=== PATIENT | male | born 1980 | race African-American/Black ===

== ENCOUNTER 2020-04-03 15:23 | Emergency (ER) | payer OTHER ==
[~2020-04-03] VITALS: Ht 172.7 cm; Wt 88.9 kg
[2020-04-03] MEDS ORDERED: diphenhydrAMINE HCL 50 MG/ML VIAL IM ONE (15:30)
[2020-04-03] MEDS ORDERED: HALOPERIDOL LACTATE INJ 5 MG/ML VIAL IM ONE (15:30)
[2020-04-03] MEDS ORDERED: LORAZEPAM INJ 2 MG/ML VIAL IVP ONE (15:30)
--- NOTE | 2020-04-03 15:40 | NUR ---
BIBRA60 FROM STREETS ACTING BIZZARE AND ONLY WEARING UNDERWEAR BG 94 PATIENT RELATIONS LIAISON. [employer] AT BEDSIDE. WILL PLACE PATIENT ON A 5150 HOLD. NEEDS ATTENDED.
[2020-04-03 15:54] LABS: BASOPHILS # (AUTO) 0.1 /CMM (0.0-0.2); BASOPHILS % (AUTO) 0.9 % (0.0-2.0); HEMATOCRIT 40 % (39-51); HEMOGLOBIN 13.1 g/dL (13.5-17.5); LYMPHOCYTES # (AUTO) 2.1 /CMM (0.8-4.8); LYMPHOCYTES % (AUTO) 32.6 % (20.0-44.0); MEAN CORPUSCULAR HGB CONC 33 g/dl (31.0-36.0); MEAN CORPUSCULAR VOLUME 89 fL (80-96); MONOCYTES # (AUTO) 0.7 /CMM (0.1-1.30); MONOCYTES % (AUTO) 10.6 % (2.0-12.0); NEUTROPHILS # (AUTO) 3.5 /CMM (1.8-8.9); NEUTROPHILS % (AUTO) 54.9 % (43.0-81.0); PLATELET COUNT (AUTO) 229 /CMM (150-450); RED BLOOD CELL COUNT(AUTO) 4.52 MIL/uL (4.5-6.0); WHITE BLOOD COUNT (AUTO) 6.4 K/uL (4.3-11.0)
[2020-04-03] MEDS ORDERED: diphenhydrAMINE HCL 50 MG/ML VIAL ONE (15:57)
[2020-04-03] MEDS ORDERED: HALOPERIDOL LACTATE INJ 5 MG/ML VIAL ONE (15:57)
[2020-04-03] MEDS ORDERED: LORAZEPAM INJ 2 MG/ML VIAL ONE (15:57)
--- NOTE | 2020-04-03 16:00 | NUR ---
5150 HOLD PLACED IN THE CHART.
[2020-04-03 16:02] LABS: CALCIUM, SERUM 9.2 mg/dL (8.5-10.1); CREATININE 0.7 mg/dL (0.6-1.3); POTASSIUM 3.1 mmol/L (3.5-5.1)
[2020-04-03 16:08] LABS: ALBUMIN 3.6 g/dL (3.4-5.0); BILIRUBIN,DIRECT 0.2 mg/dL (0.0-0.2); BILIRUBIN,TOTAL 0.7 mg/dL (0.2-1.0); TOTAL PROTEIN, SERUM 7.9 g/dL (6.4-8.2)
[2020-04-03 16:09] LABS: SALICYLATE 0.5 mg/dL (2.8-20.0)
--- NOTE | 2020-04-03 16:44 | NUR ---
STRAIGHT CATHETER DONE VIA STERILE TECHNIQUE.
[2020-04-03 16:49] LABS: APPEARANCE,URINE Clear (CLEAR); BILIRUBIN,URINE Negative (NEGATIVE); BLOOD, URINE Moderate Ery/uL (NEGATIVE); COLOR,URINE Yellow (YELLOW); KETONES,URINE Negative (NEGATIVE); LEUKOCYTE ESTERASE ,URINE Negative (NEGATIVE); NITRITE, URINE Negative (NEGATIVE); PH,URINE 5.5 (5.0-8.0); PROTEIN,URINE Negative (NEGATIVE); UGLUCOSE Negative (NEGATIVE); UROBILINOGEN,URINE 0.2 EU/dL (0.2)
[2020-04-03 17:01] LABS: BACTERIA,URINE Few /HPF (None Seen); SQUAMOUS EPITHELIAL CELL,UR Few /HPF (None Seen); WBC,URINE 0-2 /HPF (0-3)
--- NOTE | 2020-04-03 17:14 | NUR ---
patient placed on o2 at 2lpm via nc for comfort.
--- NOTE | 2020-04-03 17:39 | NUR ---
Patient asleep, but easily arousable. No distress noted.
--- NOTE | 2020-04-03 19:17 | NUR ---
ENDORSED TO GO[facility] BARRIOS FOR JOCELYN.
--- NOTE | 2020-04-03 19:52 | NUR ---
Patient is resting comfortably in bed with eyes closed. Easily aroused. VSS. Sitter at bedside.
--- NOTE | 2020-04-03 21:16 | NUR ---
Patient is resting comfortably in bed with eyes closed. Easily aroused. VSS.
--- NOTE | 2020-04-03 23:46 | NUR ---
RESTING COMFORTABLY. VSS.
--- NOTE | 2020-04-04 01:30 | NUR ---
Patient discharged to home in stable condition. Written and verbal after care instructions given. Patient verbalizes understanding of instruction. PT Cleared by crisis team.
[2020-04-04 03:13] VITALS: BP 127/72
== END 2020-04-04 03:14 | disposition home or self-care (01) ==
LOC: ER 15:31
DX: F15.121 Other stimulant abuse with intoxication delirium (principal); I10 Essential (primary) hypertension; J45.909 Unspecified asthma, uncomplicated
CPT/HCPCS: 36415; 80048; 80076; 80305; 80307; 80329; 81001; 85025; 96372 ×2; 99285; G0480; J1200; J1630; J2060; 81000-TC

== ENCOUNTER 2020-04-05 08:27 | Emergency (ER) | payer OTHER ==
[~2020-04-05] VITALS: Ht 172.7 cm; Wt 88.9 kg
[2020-04-05 08:52] LABS: HEMOGLOBIN 14.2 g/dL (13.5-17.5)
[2020-04-05 08:55] LABS: HEMATOCRIT 43 % (39-51); LYMPHOCYTES # (AUTO) 1.5 /CMM (0.8-4.8); MEAN CORPUSCULAR HGB CONC 33 g/dl (31.0-36.0); MONOCYTES # (AUTO) 0.6 /CMM (0.1-1.30); NEUTROPHILS # (AUTO) 2.7 /CMM (1.8-8.9); WHITE BLOOD COUNT (AUTO) 4.9 K/uL (4.3-11.0)
[2020-04-05 08:58] LABS: CALCIUM, SERUM 8.7 mg/dL (8.5-10.1); CREATININE 0.9 mg/dL (0.6-1.3); POTASSIUM 3.2 mmol/L (3.5-5.1)
[2020-04-05 09:03] LABS: ALBUMIN 3.5 g/dL (3.4-5.0); BASOPHILS % (AUTO) 0.7 % (0.0-2.0); BILIRUBIN,DIRECT 0.1 mg/dL (0.0-0.2); BILIRUBIN,TOTAL 0.4 mg/dL (0.2-1.0); EOSINOPHILS % (AUTO) 1.2 % (0.0-6.0); LYMPHOCYTES % (AUTO) 31.5 % (20.0-44.0); MEAN CORPUSCULAR VOLUME 88 fL (80-96); MONOCYTES % (AUTO) 12.3 % (2.0-12.0); NEUTROPHILS % (AUTO) 54.3 % (43.0-81.0); PLATELET COUNT (AUTO) 240 /CMM (150-450)
[2020-04-05 09:04] LABS: SALICYLATE 1.2 mg/dL (2.8-20.0)
--- NOTE | 2020-04-05 09:22 | NUR ---
Patient awake alert noted able to make his needs known patient able to ambulated to bathroom urine obtained and send to lab ,patient would like to be call " Charissa" patient no agitation no hallucination @ this time will continue to monitor
[2020-04-05 09:26] LABS: APPEARANCE,URINE Clear (CLEAR); BILIRUBIN,URINE Negative (NEGATIVE); BLOOD, URINE Trace-intact Ery/uL (NEGATIVE); COLOR,URINE Yellow (YELLOW); KETONES,URINE Negative (NEGATIVE); LEUKOCYTE ESTERASE ,URINE Negative (NEGATIVE); NITRITE, URINE Negative (NEGATIVE); PH,URINE 5.5 (5.0-8.0); PROTEIN,URINE 30 mg/dl (NEGATIVE); UGLUCOSE Negative (NEGATIVE); UROBILINOGEN,URINE 0.2 EU/dL (0.2)
[2020-04-05 09:28] LABS: BACTERIA,URINE None seen /HPF (None Seen); SQUAMOUS EPITHELIAL CELL,UR None Seen /HPF (None Seen); WBC,URINE 0-2 /HPF (0-3)
--- NOTE | 2020-04-05 11:41 | NUR ---
Crepe [employer] consult was requested by the Emergency Room due to the pt having hallucinations. Pt is a 39 year old male that the SW met with at bedside. Pt stated that he has been having hallucinations but that the voices have been getting quieter. Pt appears to be alert and oriented x4 (time, place, self and situation). Pt appeared to be in a depressed mood and presented with a calm affect. Pt stated that he has been feeling better but he still feels depressed at times. Pt states that he is living in a hotel at the moment because he just moved back to [place]. Pt recognizes that he needs to go to the DM to get his license as one of the first things to do because he needs identification. Pt states that he will need that when he picks up his medications from the pharmacy. SW looked into the nearest DM with the pt and informed him of its locations and hours of operation. Pt appears to have fair insight and judgment. Pt states that he would like to be discharged back to his hotel. Plan: Pt will be discharged back to the hotel that he has been residing in.
--- NOTE | 2020-04-05 13:45 | NUR ---
Patient DC dwayne instruction given agrees to see PMD in 2 days verbalized understanding patient is ambulatory
[2020-04-05 13:47] VITALS: BP 145/67
== END 2020-04-05 13:48 | disposition home or self-care (01) ==
LOC: ER 08:28
DX: F10.121 Alcohol abuse with intoxication delirium (principal); F19.10 Other psychoactive substance abuse, uncomplicated; R41.82 Altered mental status, unspecified; I10 Essential (primary) hypertension; J45.909 Unspecified asthma, uncomplicated; Y90.6 Blood alcohol level of 120-199 mg/100 ml
CPT/HCPCS: 36415; 80048; 80076; 80305; 80307; 80329; 81001; 85025; 99283; G0480; 81000-TC

== ENCOUNTER 2020-04-05 18:24 | Emergency (ER) | payer OTHER ==
[~2020-04-05] VITALS: Ht 172.7 cm; Wt 97.5 kg
--- NOTE | 2020-04-05 19:30 | NUR ---
DEPRESSION, SUICIDAL W/ PLAN TO OD ON PILLS , PT TO BED 14, SI PRECAUTIONS STARTED, -SOB, ,VSS, NAD NOTED, PENDING ER PROVIDER EVAL
--- NOTE | 2020-04-06 03:24 | NUR ---
PATIENT IS ASLEEP. NO SIGNS OF ACUTE DISTRESS. BREAHTHING EVENLY AND UNLABORED ON ROOM AIR. EASILY AROUSED THROUGH VOICE AND TOUCH. CONNECTED TO THE MONITOR WITH SITTER AT BEDISDE.
--- NOTE | 2020-04-06 04:27 | NUR ---
PATIENT IS SLEEPING. EASILY AROUSABLE. BREATHING EVENLY AND UNLABORED ON ROOM AIR. CONNECTED TO MONITOR. SITTER AT BEDSIDE.
--- NOTE | 2020-04-06 05:52 | NUR ---
PATIENT IS AMBULATORY WITH A STEADY GAIT. PATIENT ASKS, "CAN I HAVE SOME FOOD?"
--- NOTE | 2020-04-06 06:10 | NUR ---
PT AWAKE. AAOX4. DENIES SUICIDAL IDEATION AT THIS TIME. AWARE
--- NOTE | 2020-04-06 06:27 | NUR ---
Patient given written and verbal discharge instructions. Patient verbalizes understanding of instructions. Patient is ambulatory with steady gait. Refuses offer of half-way placement. Patient given list of available shelters in surrounding area.
[2020-04-06 06:30] VITALS: BP 148/79
== END 2020-04-06 06:30 | disposition home or self-care (01) ==
LOC: ER 18:27
DX: R45.851 Suicidal ideations (principal); F10.10 Alcohol abuse, uncomplicated; F15.10 Other stimulant abuse, uncomplicated; F12.90 Cannabis use, unspecified, uncomplicated; F32.9 Major depressive disorder, single episode, unspecified; R00.0 Tachycardia, unspecified; I10 Essential (primary) hypertension; J45.909 Unspecified asthma, uncomplicated; Y90.1 Blood alcohol level of 20-39 mg/100 ml; Z72.0 Tobacco use; Z79.890 Hormone replacement therapy; Z04.6 Encounter for general psychiatric examination, requested by authority; Z59.0 Homelessness
CPT/HCPCS: 36415; G0480

== ENCOUNTER 2020-09-05 18:44 | Emergency (ER) | payer OTHER ==
[~2020-09-05] VITALS: Ht 172.7 cm; Wt 95.3 kg
[2020-09-05 18:50] VITALS: BP 143/98
--- NOTE | 2020-09-05 19:10 | NUR ---
PT CAME TO THE ER C/O MIDSTERNAL CHEST PAIN RADIATING TO R ARM. -N/V. PT AAOX4, VSS, RESPIRATIONS EVEN AND UNLABORED ON RA W/ NAD NOTED. PT CONNECTED TO THE TOPPER PRESS OPERATOR AND POX
--- NOTE | 2020-09-05 19:24 | NUR ---
PT REFUSED BLOOD DRAW
--- NOTE | 2020-09-05 19:30 | NUR ---
XRAY AT BEDSIDE
--- NOTE | 2020-09-05 19:30 | NUR ---
Ashleigh tyson in [facility] - 09/05/20 at 2347 by SHOLA PT ATTEMPTED TO HIT STAFF WHILE STAFF ATTEMPTED TO DRAW BLOOD DRAW
[2020-09-05] MEDS ORDERED: LIDOCAINE VISCOUS 2% UD 15 ML UDC ONE (19:39)
[2020-09-05] MEDS ORDERED: MAG HYDROX/AL HYDROX/SIMETH 30 ML UDC ONE (19:39)
--- NOTE | 2020-09-05 19:42 | NUR ---
ATTEMPTED TO REDRAW BLOOD FROM THE PT. PT ATTEMPTED TO HIT STAFF. KAITLYNN TINOCO AWARE
--- NOTE | 2020-09-05 19:55 | NUR ---
PT VERBALLY ABUSIVE TO STAFF WHILE STAFF TRIED TO EXPLAIN THE IMPORTANCE OF BLOOD DRAW
[2020-09-05] MEDS: MAG HYDROX/AL HYDROX/SIMETH 30 ML UDC PO ONE (19:56)
[2020-09-05] MEDS: LIDOCAINE VISCOUS 2% UD 15 ML UDC MM ONE (19:56)
--- NOTE | 2020-09-05 20:03 | NUR ---
Patient does not wish to proceed with medical care recommended by KAITLYNN Holloway. Patient given information related to possible complications, up to and including , which could occur as a result of leaving the hospital at this time. Patient verbalizes understanding of risks involved due to leaving against medical advice. Patient refused to sign AMA form. Pt ambulatory w/ steady gait. Pt seen walking around the emergency room talking on the phone. VSS.
== END 2020-09-05 20:06 | disposition left against medical advice (07) ==
LOC: ER 18:48
DX: K21.00 Gastro-esophageal reflux disease with esophagitis, without bleeding (principal); K29.20 Alcoholic gastritis without bleeding; F10.10 Alcohol abuse, uncomplicated; R11.0 Nausea; R00.0 Tachycardia, unspecified; I10 Essential (primary) hypertension; J45.909 Unspecified asthma, uncomplicated; Y90.9 Presence of alcohol in blood, level not specified; Z72.0 Tobacco use; Z91.19 Patient's noncompliance with other medical treatment and regimen
CPT/HCPCS: 71045-TC

== ENCOUNTER 2020-12-02 00:40 | Emergency (ER) | payer MEDICAID, OTHER ==
[~2020-12-02] VITALS: Ht 172.7 cm; Wt 95.3 kg
--- NOTE | 2020-12-02 00:50 | NUR ---
PT BIBRA60 FROM [employer] FOR ETOH. PT NOT ANSWERING QUESTIONS BUT RESPONSIVE TO MECHANICAL STIMULI. VSS. PT PLACED ON SUPPLEMENTAL 2 LITERS O2 VIA N/C SATTING 98%. RESPIRATIONS EVEN AND UNLABORED. PT CONNECTED TO THE MONITOR AND POX
--- NOTE | 2020-12-02 06:13 | NUR ---
PER DR. NICHOLE, PT MEDICALLY CLEARED FOR DISCHARGE. Patient discharged to home in stable condition. Written and verbal after care instructions given. Patient verbalizes understanding of instruction. Pt ambulatory with a steady gait
[2020-12-02 06:14] VITALS: BP 136/84
== END 2020-12-02 06:14 | disposition home or self-care (01) ==
LOC: ER 00:47
DX: F10.129 Alcohol abuse with intoxication, unspecified (principal); I10 Essential (primary) hypertension; J45.909 Unspecified asthma, uncomplicated; F17.200 Nicotine dependence, unspecified, uncomplicated; Z60.2 Problems related to living alone; Y90.9 Presence of alcohol in blood, level not specified
CPT/HCPCS: 82962-TC